=== PATIENT | female | born 1995 ===

== ENCOUNTER 2021-01-09 20:54 | Inpatient (IN) | payer OTHER ==
[~2021-01-09] VITALS: Ht 154.9 cm; Wt 62.1 kg
[2021-01-09] MEDS ORDERED: PRENATAL TABLE1 EAC1 PO (22:04)
== END 2021-01-12 13:28 | disposition home or self-care (01) | DRG 807 ==
LOC: LDR 20:54 → OB/GYN 01-10 08:10
PROVIDERS: ADMIT Obstetrics & Gynecology; ATTEND Obstetrics & Gynecology
PROC: 4A1HXFZ Monitoring of Products of Conception, Cardiac Rhythm, External Approach (ICD-10-PCS; 2021-01-09)
PROC: 10E0XZZ Delivery of Products of Conception, External Approach (ICD-10-PCS; principal; 2021-01-10)
PROC: 0UQMXZZ Repair Vulva, External Approach (ICD-10-PCS; 2021-01-10)
DX: O36.5930 Maternal care for other known or suspected poor fetal growth, third trimester, not applicable or unspecified (principal); Z37.0 Single live birth; O71.82 Other specified trauma to perineum and vulva; Z3A.38 38 weeks gestation of pregnancy